=== PATIENT | male | born 1950 | race Caucasian/White ===

== ENCOUNTER → 2016-10-30 | Outpatient (CLI) | payer MEDICARE, OTHER ==
[~2016-10-30] MED LIST: ASCO10004 PO; HYDR12.58 PO; IBUP-1221 PO; MULT-658 PO; OMEP-110 PO; ROSU20TA PO; SILD100T PO; TEST60GE TP
[2016-10-30 16:16] LABS: HEMATOCRIT 53.9 % (39.2-51.8); HEMOGLOBIN 18.4 g/dL (13.7-18.0); WHITE BLOOD COUNT 5.8 x10^3/uL (3.4-10)
[2016-10-30 16:25] LABS: ASPARTATE AMINO TRANSFERASE 41 U/L (15-37); BLOOD UREA NITROGEN 20 mg/dL (7-18)
== END | disposition home or self-care (01) ==
LOC: STAR 14:49
PROVIDERS: ATTEND Orthopaedic Surgery
DX: Z01.818 Encounter for other preprocedural examination (principal); M17.11 Unilateral primary osteoarthritis, right knee; M17.12 Unilateral primary osteoarthritis, left knee
CPT/HCPCS: 36415; 80053; 81003; 85025; 87081; 87147

== ENCOUNTER 2016-11-06 07:02 | Inpatient (IN) | payer MEDICARE, OTHER ==
[~2016-11-06] VITALS: Ht 190.5 cm; Wt 102.4 kg
[~2016-11-06 07:02] MED LIST changes: +BUPIVACAINE/PF 0.25% ONE
[2016-11-06] MEDS ORDERED: LACTATED RINGERS 1,000 ML IV SCH (07:42)
[2016-11-06 07:44] VITALS: BP 130/86
[2016-11-06] MEDS ORDERED: KETOROLAC 60 MG/2 ML ONE (08:05)
[2016-11-06] MEDS ORDERED: ROPIvacaine/PF 0.2%, 20 ML ONE (08:05)
[2016-11-06] MEDS ORDERED: SODIUM CHLORIDE 0.9% 50 ML ONE (08:06)
[2016-11-06] MEDS ORDERED: TRANEXAMIC ACID 100 MG/ML, 10ML ONE ×2 (08:06)
[2016-11-06] MEDS ORDERED: FENTANYL PF 100 MCG/2ML ONE ×2 (08:06→13:39)
[2016-11-06] MEDS ORDERED: EPINEPHRINE 1 MG/ML, 1ML ONE (08:06)
[2016-11-06] MEDS ORDERED: MIDAZOLAM 1 MG/ML, 2ML ONE (08:07)
[2016-11-06] MEDS ORDERED: CEFAZOLIN 1,000 MG ONE (09:45)
[2016-11-06] MEDS ORDERED: ONDANSETRON 2MG/ML, 2ML ONE (09:45)
[2016-11-06] MEDS ORDERED: PROPOFOL 10 MG/ML, 20ML ONE (09:45)
[2016-11-06] MEDS ORDERED: SUCCINYLCHOLINE 20 MG/ML, 10ML ONE (09:45)
[2016-11-06] MEDS ORDERED: LABETALOL 5MG/ML 40ML VIAL ONE (09:45)
[2016-11-06] MEDS ORDERED: DEXAMETHASONE 4 MG/ML, 1ML ONE (09:45)
[2016-11-06] MEDS ORDERED: KETAMINE 10 MG/ML, 20ML ONE (09:55)
[2016-11-06] MEDS ORDERED: HYDROmorphone 2 MG/ML, 1ML ONE ×2 (09:55→11:23)
[2016-11-06] MEDS ORDERED: MIDAZOLAM 1 MG/ML, 2ML IV PRN (10:30)
[2016-11-06] MEDS ORDERED: ACETAMINOPHEN 325 MG TABLET PO PRN (10:30)
[2016-11-06] MEDS ORDERED: LABETALOL 5MG/ML, 20ML IV PRN (10:30)
[2016-11-06] MEDS ORDERED: HYDROmorphone 1 MG/ML, 1ML IV PRN ×2 (10:30→13:30)
[2016-11-06] MEDS ORDERED: hydrALAzine 20 MG/ML, 1ML IV PRN (10:30)
[2016-11-06] MEDS ORDERED: PROMETHAZINE 25 MG/ML, 1ML IV PRN (10:30)
[2016-11-06] MEDS ORDERED: ALBUTEROL/IPRATROPIUM 2.5MG/0.5MG, 3 ML NPPB PRN (10:30)
[2016-11-06] MEDS ORDERED: OXYcodone 5 MG/5 ML ORAL.SOL UDC PO PRN (10:30)
[2016-11-06] MEDS ORDERED: MEPERIDINE/PF 25MG/0.5ML IVPush PRN (10:30)
[2016-11-06] MEDS ORDERED: ONDANSETRON 2MG/ML, 2ML IVPush PRN (10:30)
[2016-11-06] MEDS ORDERED: ROPIvacaine/PF 0.2%, 100ML 550 ML (check volume) INJ ONE ×2 (11:00)
[2016-11-06] MEDS ORDERED: ACETAMINOPHEN 650 MG/20.3 ML UDC ONE (13:21)
[2016-11-06] MEDS ORDERED: OXYcodone 5 MG/5 ML ORAL.SOL UDC ONE (13:21)
[2016-11-06] MEDS ORDERED: DIAZEPAM 5 MG TABLET PO PRN (13:30)
[2016-11-06] MEDS ORDERED: BISACODYL 10 MG SUPP PR PRN (13:30)
[2016-11-06] MEDS ORDERED: LORazepam 1MG TABLET PO PRN (13:30)
[2016-11-06] MEDS ORDERED: MAGNESIUM HYDROXIDE 8%, 30ML UDC PO PRN (13:30)
[2016-11-06] MEDS ORDERED: ONDANSETRON 4 MG TABLET PO PRN (13:30)
[2016-11-06] MEDS ORDERED: PROMETHAZINE 12.5 MG SUPP PR PRN (13:30)
[2016-11-06] MEDS ORDERED: ZOLPIDEM 5MG TABLET PO PRN (13:30)
[2016-11-06] MEDS ORDERED: DIPHENHYDRAMINE 50 MG CAPSULE PO PRN (13:30)
[2016-11-06] MEDS ORDERED: ONDANSETRON 2MG/ML, 2ML IV PRN (13:30)
[2016-11-06] MEDS ORDERED: SENNA/DOCUSATE TABLET PO PRN (13:30)
[2016-11-06] MEDS ORDERED: TRANEXAMIC ACID 1,000 MG in SODIUM CHLORIDE 0.9% 100 ML IVPB ONE (13:35)
[2016-11-06] MEDS: FENTANYL PF 100 MCG/2ML IV PRN ×2 (13:43→14:03)
[2016-11-06] MEDS: HYDROcodone/APAP 5/325 TABLET PO PRN ×3 (17:54→22:44)
[2016-11-06] MEDS: TAMSULOSIN 0.4 MG CAP.ER.24H PO SCH (17:54)
[2016-11-06] MEDS: D5%-0.45% NACL 1,000 ML IV SCH (17:57)
[2016-11-06] MEDS ORDERED: SODIUM CHLORIDE 0.9%, 500ML IVBOLUS ONE (18:00)
[2016-11-06] MEDS: CEFAZOLIN PMX 2GM/50ML 50 ML IVPB SCH (18:02)
[2016-11-06] MEDS: ASPIRIN 81 MG TABLET EC PO SCH (18:03)
[2016-11-06 19:59] VITALS: BP 117/69
[2016-11-06] MEDS: DOCUSATE 100 MG CAPSULE PO SCH (22:35)
[2016-11-06] MEDS: ATORVASTATIN 40 MG TABLET PO SCH (22:35)
[2016-11-07 00:07] VITALS: BP 120/73
[2016-11-07] MEDS: D5%-0.45% NACL 1,000 ML IV SCH ×3 (02:24→18:00)
[2016-11-07] MEDS: CEFAZOLIN PMX 2GM/50ML 50 ML IVPB SCH (02:24)
[2016-11-07 04:00] VITALS: BP 133/81
[2016-11-07] MEDS: HYDROcodone/APAP 5/325 TABLET PO PRN ×5 (05:08→20:08)
[2016-11-07] MEDS: ASPIRIN 81 MG TABLET EC PO SCH ×2 (05:18→18:06)
[2016-11-07] MEDS ORDERED: DEXAMETHASONE 4 MG/ML, 1ML IVPush SCH (06:00)
[2016-11-07 06:05] LABS: BLOOD UREA NITROGEN 15 mg/dL (7-18)
[2016-11-07] MEDS: TAMSULOSIN 0.4 MG CAP.ER.24H PO SCH (07:52)
[2016-11-07] MEDS: OMEPRAZOLE 20 MG CAPSULE.DR PO SCH (07:52)
[2016-11-07] MEDS: HYDROCHLOROTHIAZIDE 12.5 MG CAPSULE PO SCH (07:53)
[2016-11-07] MEDS: MULTIVITAMIN 1 TABLET PO SCH (07:53)
[2016-11-07] MEDS: DOCUSATE 100 MG CAPSULE PO SCH ×2 (07:53→20:08)
[2016-11-07 08:00] VITALS: BP 123/72
[2016-11-07 13:01] VITALS: BP 118/65
[2016-11-07] MEDS: KETOROLAC 30 MG/1 ML IV SCH ×2 (16:04→23:57)
[2016-11-07 19:32] VITALS: BP 121/63
[2016-11-07] MEDS: ATORVASTATIN 40 MG TABLET PO SCH (20:08)
[2016-11-07] MEDS: OXYcodone IR 5MG TABLET PO PRN (23:57)
[2016-11-08] MEDS: OXYcodone IR 5MG TABLET PO PRN ×5 (00:39→15:10)
[2016-11-08] MEDS: D5%-0.45% NACL 1,000 ML IV SCH ×2 (02:00→10:00)
[2016-11-08 02:59] VITALS: BP 128/80
[2016-11-08] MEDS: ASPIRIN 81 MG TABLET EC PO SCH (05:50)
[2016-11-08 07:52] VITALS: BP 136/80
[2016-11-08] MEDS ORDERED: OXYcodone IR 5MG TABLET ONE (08:11)
[2016-11-08] MEDS: KETOROLAC 30 MG/1 ML IV SCH (08:15)
[2016-11-08] MEDS: DOCUSATE 100 MG CAPSULE PO SCH (08:19)
[2016-11-08] MEDS: TAMSULOSIN 0.4 MG CAP.ER.24H PO SCH (08:19)
[2016-11-08] MEDS: OMEPRAZOLE 20 MG CAPSULE.DR PO SCH (08:19)
[2016-11-08] MEDS: MULTIVITAMIN 1 TABLET PO SCH (08:19)
[2016-11-08] MEDS: HYDROCHLOROTHIAZIDE 12.5 MG CAPSULE PO SCH (08:19)
[2016-11-08] MEDS ORDERED: ACETAMINOPHEN 500 MG TABLET PO ONE (09:00)
[2016-11-08 13:05] VITALS: BP 101/65
[2016-11-08] MEDS ORDERED: OXYC10TA6 PO (14:55)
[2016-11-12] MEDS ORDERED: CEPH-376 PO (08:16)
[2016-11-12] MEDS ORDERED: POLY17PO5 PO (08:16)
[2016-11-12] MEDS ORDERED: DOCU-131 PO (08:16)
[2016-11-12] MEDS ORDERED: METH4TAB6 PO (08:16)
== END 2016-11-08 15:31 | disposition home or self-care (01) | DRG 461 ==
LOC: ORIP 07:02 → 4NOR 14:29
PROVIDERS: ADMIT Orthopaedic Surgery; ATTEND Orthopaedic Surgery
PROC: 0SRD0J9 Replacement of Left Knee Joint with Synthetic Substitute, Cemented, Open Approach (ICD-10-PCS; 2016-11-06)
PROC: 0SRC0J9 Replacement of Right Knee Joint with Synthetic Substitute, Cemented, Open Approach (ICD-10-PCS; principal; 2016-11-06 10:00)
DX: M17.0 Bilateral primary osteoarthritis of knee (principal); G82.50 Quadriplegia, unspecified; I10 Essential (primary) hypertension; E29.1 Testicular hypofunction; E78.5 Hyperlipidemia, unspecified; K21.9 Gastro-esophageal reflux disease without esophagitis; Z86.73 Personal history of transient ischemic attack (TIA), and cerebral infarction without residual deficits
CPT/HCPCS: 36415; 80048; 82040; 85018; C1713; J0171; J0690; J1100; J1170; J1885; J2250; J2405; J2704; J2795; J3010; J3490; C1776; J0330; J7040; J7120